=== PATIENT | female | born 1950 | race Caucasian/White ===

== ENCOUNTER 2017-01-07 05:49 | Inpatient (IN) | payer MEDICARE, OTHER ==
[~2017-01-07] VITALS: Ht 162.6 cm; Wt 65.0 kg
[~2017-01-07 05:49] MED LIST: 0.9% SODIUM CHLORIDE 10 ML VIAL IVP ONE; DEXAMETHASONE SOD PHOS 4 MG/ML VIAL IVP ONE; EPHEDrine SULFATE 50 MG/ML VIAL IM ONE; FentaNYL CITRATE-PF 100 MCG/2 ML VIAL IVP ONE; GLYCOPYRROLATE 0.2 MG/ML VIAL IM ONE; HYDR-3705 PO; LAMO100 PO; LIDOCAINE HCL/PF 2% 5 ML VIAL IM ONE; METO50 PO; MIDAZOLAM HCL 2 MG/2 ML VIAL IVP ONE; ONDANSETRON HCL 4 MG/2 ML VIAL IVP ONE; PHENYLEPHRINE HCL 10 MG/ML VIAL IVP ONE; PROPOFOL 1% 20 ML VIAL IVP ONE; QUET25TA PO; SIMV-260 PO; SUCCINYLCHOLINE CHLORIDE 20 MG/ML 10 ML VIAL IVP ONE; VENL50TA44 PO
[2017-01-07] MEDS ORDERED: RINGERS SOLUTION,LACTATED 1,000 ML IV ONE ×3 (05:58→06:00)
[2017-01-07] MEDS ORDERED: GUM MASTIC/STORAX/MSAL/ALCOHOL LIQUID 0.67 ML VIAL TP ONE (06:11)
[2017-01-07] MEDS ORDERED: LIDOCAINE HCL/PF 1% 30 ML VIAL ONE ×2 (06:12→06:13)
[2017-01-07] MEDS ORDERED: BUPIVACAINE HCL/PF 0.5% 30 ML VIAL ONE (06:12)
[2017-01-07] MEDS ORDERED: VANCOMYCIN HCL 1 GM/VIAL ONE (06:24)
[2017-01-07 06:36] LABS: BASOPHILS % (AUTO) 1.2 % (0.0-2.0); EOSINOPHILS % (AUTO) 13.3 % (1.0-6.0); HEMATOCRIT 33.2 % (36-46); HEMOGLOBIN 10.5 g/dL (12.0-16.0); LYMPHOCYTES # (AUTO) 2.4 K/uL (1.0-4.8); LYMPHOCYTES % (AUTO) 40.9 % (22.0-44.0); MEAN CORPUSCULAR HEMOGLOBIN 27.4 pg (26.0-34.0); MEAN CORPUSCULAR HGB CONC 31.6 G/dL (31.0-37.0); MEAN CORPUSCULAR VOLUME 87 fL (80-100); MONOCYTES # (AUTO) 0.5 K/uL (0.1-1.0); MONOCYTES % (AUTO) 8.6 % (2.0-9.0); NEUTROPHILS # (AUTO) 2.1 K/uL (1.8-7.7); PLATELET COUNT (AUTO) 225 K/uL (150-450); RED BLOOD CELL COUNT(AUTO) 3.83 MIL/uL (4.00-5.20); RED CELL DISTRIBUTION WIDTH 13.5 % (11.5-14.5); WHITE BLOOD COUNT (AUTO) 5.9 K/uL (4.5-11.0)
[2017-01-07 06:49] LABS: INR 0.9 (0.9-1.1); PROTHROMBIN TIME 9.9 SEC (9.4-11.6)
[2017-01-07 06:57] LABS: CALCIUM, TOTAL 8.3 mg/dL (8.8-10.5); CREATININE 0.97 mg/dL (0.60-1.30); POTASSIUM 3.4 mmol/L (3.5-5.1)
[2017-01-07 07:03] LABS: BILIRUBIN,TOTAL 0.3 mg/dL (0.1-1.0); TOTAL PROTEIN, SERUM 6.9 g/dL (6.4-8.2)
[2017-01-07] MEDS ORDERED: DiphenhydrAMINE HCL 50 MG/ML VIAL IVP PRN (07:15)
[2017-01-07] MEDS ORDERED: MAG HYDROX/AL HYDROX/SIMETH 30 ML SUSP UDCUP PO PRN (07:15)
[2017-01-07] MEDS ORDERED: ZOLPIDEM TARTRATE 10 MG TABLET PO PRN (07:15)
[2017-01-07] MEDS ORDERED: DEXAMETHASONE SOD PHOS 4 MG/ML VIAL IVP PRN (07:15)
[2017-01-07] MEDS ORDERED: ONDANSETRON HCL 4 MG/2 ML VIAL IVP PRN (07:45)
[2017-01-07] MEDS ORDERED: CYCLOBENZAPRINE HCL 10 MG TABLET PO PRN (07:45)
[2017-01-07] MEDS ORDERED: HYDROmorphone 2 MG/ML SYRINGE IVP PRN (07:45)
[2017-01-07] MEDS ORDERED: FentaNYL CITRATE-PF 100 MCG/2 ML VIAL IVP PRN (07:45)
[2017-01-07] MEDS ORDERED: BUPIVACAINE LIPOSOME/PF 1.3%-13.3MG/ML SUSPENSION 10 ML VIAL INJ ONE (07:45)
[2017-01-07] MEDS ORDERED: PROMETHAZINE HCL 25 MG/ML VIAL IM PRN (07:45)
[2017-01-07] MEDS ORDERED: MEPERIDINE-PF 25 MG/ML SYRINGE IVP PRN (07:45)
[2017-01-07] MEDS ORDERED: ZOLPIDEM TARTRATE 5 MG TABLET PO PRN (07:45)
[2017-01-07] MEDS ORDERED: RINGERS SOLUTION,LACTATED 2,000 ML IV ONE (07:57)
[2017-01-07] MEDS: OXYGEN THERAPY IH SCH ×2 (08:00→20:00)
[2017-01-07] MEDS ORDERED: THROMBIN, BOVINE 20000 UNITS/VIAL POWDER TP ONE ×2 (08:07→08:11)
[2017-01-07] MEDS: DOCUSATE SODIUM 100 MG CAPSULE PO SCH ×2 (09:00→21:43)
[2017-01-07 09:35] VITALS: BP 117/67
[2017-01-07 10:37] VITALS: BP 109/58
[2017-01-07] MEDS: HYDROmorphone 2 MG/ML SYRINGE IVP PRN ×3 (10:47→17:16)
[2017-01-07] MEDS: ACETAMINOPHEN 1000 MG/ISO-OSM 100 ML IV SCH ×2 (13:06→19:19)
[2017-01-07 14:46] VITALS: BP 100/50
[2017-01-07 17:13] VITALS: BP 106/53
[2017-01-07 20:00] VITALS: BP 107/55
[2017-01-08] VITALS (8 sets, daily range): BP systolic 114–163; BP diastolic 63–80
[2017-01-08] MEDS: ACETAMINOPHEN 1000 MG/ISO-OSM 100 ML IV SCH (00:53)
[2017-01-08] MEDS: HYDROmorphone 2 MG/ML SYRINGE IVP PRN ×5 (00:58→18:27)
[2017-01-08] MEDS ORDERED: SODIUM CHLORIDE 0.9% 250 ML IV ONE (01:10)
[2017-01-08] MEDS: OXYGEN THERAPY IH SCH ×2 (08:00→20:00)
[2017-01-08] MEDS: DOCUSATE SODIUM 100 MG CAPSULE PO SCH ×2 (08:39→20:31)
[2017-01-08] MEDS: OxyCODONE HCL/ACETAMINOPHEN 10-325 MG TABLET PO PRN ×2 (12:15→15:16)
[2017-01-08] MEDS ORDERED: VENL-68 PO (12:22)
[2017-01-08] MEDS: METOPROLOL TARTRATE 50 MG TABLET PO SCH ×2 (14:02→20:31)
[2017-01-08] MEDS: LamoTRIgine 100 MG TABLET PO SCH (14:02)
[2017-01-08] MEDS: VENLAFAXINE HCL 150 MG ER CAPSULE PO SCH (14:02)
[2017-01-08] MEDS: GABAPENTIN 300 MG CAPSULE PO SCH ×2 (15:51→20:32)
[2017-01-08] MEDS ORDERED: SIMVASTATIN 20 MG TABLET PO SCH (21:00)
[2017-01-08] MEDS ORDERED: QUEtiapine FUMARATE 100 MG TABLET PO SCH (21:00)
[2017-01-08] MEDS ORDERED: POTASSIUM CHLORIDE 20 MEQ ER TABLET PO PRN (22:15)
[2017-01-08] MEDS ORDERED: ACETAMINOPHEN 325 MG TABLET PO PRN (22:15)
[2017-01-08] MEDS ORDERED: MAGNESIUM HYDROXIDE SUSPENSION 30 ML UDCUP PO PRN (22:15)
[2017-01-08] MEDS ORDERED: POTASSIUM CHL 10 MEQ/WATER 50 ML IV PRN (22:15)
[2017-01-09] MEDS: OxyCODONE HCL/ACETAMINOPHEN 10-325 MG TABLET PO PRN ×3 (03:34→13:23)
[2017-01-09 03:41] VITALS: BP 119/68
[2017-01-09 06:18] LABS: ANION GAP 9 mmol/L (8-16); CALCIUM, TOTAL 8.2 mg/dL (8.8-10.5); CARBON DIOXIDE 26 mmol/L (22-29); CHLORIDE 104 mmol/L (98-107); CREATININE 0.72 mg/dL (0.60-1.30); GLOMERULAR FILTR. RATE CALC > 60 mL/min (>60); POTASSIUM 3.6 mmol/L (3.5-5.1); SODIUM SERUM 139 mmol/L (136-145); UREA NITROGEN, BLOOD 9 mg/dL (7-18)
[2017-01-09 06:21] LABS: BASOPHILS % (AUTO) 0.8 % (0.0-2.0); EOSINOPHILS % (AUTO) 8.1 % (1.0-6.0); HEMOGLOBIN 10.2 g/dL (12.0-16.0); LYMPHOCYTES # (AUTO) 1.3 K/uL (1.0-4.8); LYMPHOCYTES % (AUTO) 30.1 % (22.0-44.0); MEAN CORPUSCULAR HEMOGLOBIN 28.2 pg (26.0-34.0); MEAN CORPUSCULAR VOLUME 86 fL (80-100); MONOCYTES # (AUTO) 0.4 K/uL (0.1-1.0); MONOCYTES % (AUTO) 9.4 % (2.0-9.0); NEUTROPHILS # (AUTO) 2.2 K/uL (1.8-7.7); NEUTROPHILS % (AUTO) 51.6 % (40.0-70.0); PLATELET COUNT (AUTO) 166 K/uL (150-450); RED BLOOD CELL COUNT(AUTO) 3.62 MIL/uL (4.00-5.20); RED CELL DISTRIBUTION WIDTH 13.3 % (11.5-14.5); WHITE BLOOD COUNT (AUTO) 4.3 K/uL (4.5-11.0)
[2017-01-09] MEDS: OXYGEN THERAPY IH SCH (08:00)
[2017-01-09] MEDS ORDERED: DOCUSATE SODIUM 100 MG CAPSULE PO SCH (09:00)
[2017-01-09] MEDS ORDERED: PANTOPRAZOLE SODIUM 40 MG DR TABLET PO SCH (09:00)
[2017-01-09 09:20] VITALS: BP 146/78
[2017-01-09] MEDS: DOCUSATE SODIUM 100 MG CAPSULE PO SCH (09:28)
[2017-01-09] MEDS: METOPROLOL TARTRATE 50 MG TABLET PO SCH (09:28)
[2017-01-09] MEDS: LamoTRIgine 100 MG TABLET PO SCH (09:29)
[2017-01-09] MEDS: VENLAFAXINE HCL 150 MG ER CAPSULE PO SCH (09:29)
[2017-01-09] MEDS: GABAPENTIN 300 MG CAPSULE PO SCH (09:29)
[2017-01-09 12:30] VITALS: BP 131/70
[2017-01-09 13:24] VITALS: BP 107/47
== END 2017-01-09 16:14 | disposition home or self-care (01) | DRG 519 ==
LOC: 4E 05:49 → OBSVTOIN 05:49
PROVIDERS: ADMIT Orthopaedic Surgery Orthopaedic Surgery of the Spine; ATTEND Internal Medicine
PROC: 00UT07Z Supplement Spinal Meninges with Autologous Tissue Substitute, Open Approach (ICD-10-PCS; 2017-01-07)
PROC: 3E0R3GC Introduction of Other Therapeutic Substance into Spinal Canal, Percutaneous Approach (ICD-10-PCS; 2017-01-07)
PROC: 01NB0ZZ Release Lumbar Nerve, Open Approach (ICD-10-PCS; principal; 2017-01-07 07:30)
DX: M51.26 Other intervertebral disc displacement, lumbar region (principal); G96.11 Dural tear; M48.06 Spinal stenosis, lumbar region; M54.42 Lumbago with sciatica, left side; E87.6 Hypokalemia; I10 Essential (primary) hypertension; F99 Mental disorder, not otherwise specified; Y99.8 Other external cause status; Z88.5 Allergy status to narcotic agent; Z79.899 Other long term (current) drug therapy; Z88.1 Allergy status to other antibiotic agents; Z88.0 Allergy status to penicillin; Y93.89 Activity, other specified
CPT/HCPCS: 87081; 93005; 97161; 97165; G0238; J0131; J0330; J0690; J1100; J1170; J2250; J2370; J2405; J2704; J3010; J3370; J3490; J7050; J7120